=== PATIENT | male | born 1965 | race Caucasian/White ===

== ENCOUNTER → 2017-11-08 | Outpatient (CLI) | payer BC, OTHER ==
[~2017-11-08] MED LIST: ASA81BEC PO; ASPIRIN325 PO; ATORVASTATIN CA40 MG PO; EFFIENT10 MG PO; LISINOPRIL10 MG PO; NITROGLYCERIN0.4 MG SUBLING; PRILOSEC 20 MG20 MG PO; PROTONIX 20 MG20 M1 PO
--- NOTE | ~2017-11-08 | 2DMMODE ---
[address] [address] 2 D/M-MODE ECHOCARDIOGRAM Name: LEON WOLF Room #: REG [facility]#: [id number] Admission: 11/08/17 Attend Phys: Boom Flowers MD Discharge: Date of : 63 Date of Service: 11/08/17 1425 Report #: [id number] THIS REPORT FOR: //name// APPROVED REPORT Study performed: 11/08/2017 12:54:31 EXAM: Comprehensive 2D, Doppler, and color-flow Echocardiogram Patient Location: Out-Patient Status: routine BSA: 2.44 HR: 82 bpm BP: 149/87 mmHg Rhythm: NSR Other Information Study Quality: Adequate Indications CAD Hx: Stents, HTN Volumes Left Atrial Volume (Systole) LA ESV Index: 21.00 mL/m2 Tricuspid Valve RAP Estimate: 5.00 mmHg Left Ventricle The left ventricle is normal size. There is normal left ventricular wall thickness. The left ventricular systolic function is normal. The left ventricular ejection fraction is within the normal range. LVEF is 55-60%. Mild diastolic dysfunction is present (impaired relaxation pattern). Right Ventricle The right ventricle is normal size. The right ventricular systolic function is normal. Atria The left atrium size is normal. The right atrium size is normal. [address] [place] [address] 2 D/M-MODE ECHOCARDIOGRAM Name: LEON WOLF Room #: REG CL [facility]#: [id number] Admission: 11/08/17 Attend Phys: Boom Flowers MD Discharge: Date of : 63 Date of Service: 11/08/171424 Report #: [id number] Aortic Valve The aortic valve is normal in structure. No aortic regurgitation is present. There is no aortic valvular stenosis. Mitral Valve There is mitral annular calcification. There is no mitral valve regurgitation noted. No evidence of mitral valve stenosis. Tricuspid Valve The tricuspid valve is normal in structure. Trace tricuspid regurgitation. Unable to assess PA pressure. Pulmonic Valve The pulmonary valve is normal in structure. There is no pulmonic valvular regurgitation. Great Vessels The aortic root is normal in size. The ascending aorta is normal in size. IVC is normal in size and collapses >50% with inspiration. Pericardium There is no pericardial effusion. <Conclusion> The left ventricle is normal size. There is normal left ventricular wall thickness. The left ventricular systolic function is normal. Mild diastolic dysfunction is present (impaired relaxation pattern). The right ventricle is normal size. The left atrium size is normal. The aortic valve is normal in structure. There is no mitral valve regurgitation noted. Trace tricuspid regurgitation. <ELECTRONICALLY SIGNED> By: Boom Flowers MD 11/08/17 1425 1425 1425 Boom Flowers MD /JORGE
== END ==
LOC: CV 10-22 08:44
DX: I25.10 Atherosclerotic heart disease of native coronary artery without angina pectoris (principal); I10 Essential (primary) hypertension; Z95.5 Presence of coronary angioplasty implant and graft

== ENCOUNTER → 2019-01-02 | Outpatient (CLI) | payer BC, OTHER ==
--- NOTE | 2019-01-02 13:11 | EXE ---
[facility] [place] [address] STRESS ECHOCARDIOGRAM Name: LEON OWLF Room #: REG CL [facility]#: [id number] ������������� Admission: 01/02/19 ������������� Attend Phys: Boom Flowers MD Discharge: ��� ������������� ��� Date of : 63 Date of Service: 01/02/19 1311 �� Report #: [id number] �������� ��������������������������������������������[id number] THIS REPORT FOR: //name// APPROVED REPORT Study performed: 01/02/2019 12:00:51 Exam: Stress Echocardiogram Indication: CAD Patient Location: Out-Patient Stress Nurse: Pattie Pa RN Status: routine Ht: 6 ft 2 in HR: 71 bpm BP: 128/82 mmHg Rhythm: NSR Procedure The patient underwent an Exercise Stress Test using the Ryan Protocol. Blood pressure, heart rate, and EKG were monitored. An Echocardiogram was performed by log data technician in four stages in quad fashion. At peak stress, four selected images were obtained and placed side by side with resting images for comparison. Stress Test Details Stress Test: Exercise stress testing was performed using a Ryan protocol. HR Resting HR: 71 bpm Max Heart Rate (APMHR): 166 bpm Max HR Achieved: 153 bpm Target HR (85% APMHR): 141 bpm % of APMHR: 92 Recovery HR: 90 bpm HR response to stress: Normal HR response to stress BP Resting BP: 128/82 mmHg Max BP: 182/90 mmHg Recovery BP: 140/86 mmHg BP response to stress: Normal blood pressure response to stress. ECG Resting ECG: Sinus Rhythm Stress ECG: Sinus Rhythm, nonspecific ST-T abnormalities ST Change: Non-ischemic [facility] [address] [place] [address] STRESS ECHOCARDIOGRAM Name: LUCIANOLEONSOMMER RODRIGUEZ Room #: REG CL [facility]#: [id number] ������������� Admission: 01/02/19 ������������� Attend Phys: Boom Flowers MD Discharge: ��� ������������� ��� Date of : 63 Date of Service: 01/02/19 1311 �� Report #: [id number] �������� ��������������������������������������������[id number] Clinical Reason for Termination: Maximal effort/leg pain Stress Symptoms: Leg Fatigue Exercise duration: 9 min 19 sec Highest Stage Achieved: Stage 3: 3.4 mph at 14% grade. Pre-Stress Echo The resting Echocardiogram showed normal left ventricular contractility with an estimated Ejection Fraction of about 55-60%. Normal wall motion in all segments on baseline images. Post-Stress Echo The stress Echocardiogram showed normal left ventricular contractility with an estimated Ejection Fraction of about 65-70%. Normal augmentation of wall motion in all segments on post stress images. Clinical Normal augmentation of myocardial wall segments using a 17 segment model. No clinical or ECG evidence for ischemia. Conclusion Clinical Response: Non-ischemic Exercise Capacity: Average Stress ECG Response: Non-ischemic Stress Echo Images: Non-ischemic The left ventricle is normal in size and wall thickness in both the rest and stress images. Other Information Study Quality: Adequate <Conclusion> The left ventricle is normal in size and wall thickness in both the rest and stress images. ��������������������������������������������� <ELECTRONICALLY SIGNED> ���������������������������������������� By: Boom Flowers MD ��������������������������������������������� 01/02/191310 10 10 Boom Flowers MD /INF
== END ==
LOC: CV 12-01 06:28
DX: I25.10 Atherosclerotic heart disease of native coronary artery without angina pectoris (principal)

== ENCOUNTER → 2020-03-04 | Outpatient (CLI) | payer BC, OTHER | LOC: SJCVCIMAG 11:29 | PROVIDERS: ATTEND Internal Medicine Cardiovascular Disease | DX: I07.1 Rheumatic tricuspid insufficiency (principal); I25.10 Atherosclerotic heart disease of native coronary artery without angina pectoris; I10 Essential (primary) hypertension ==

== ENCOUNTER → 2020-09-02 | Outpatient (CLI) | payer BC, OTHER | LOC: SJCVCIMAG 07:59 | PROVIDERS: ATTEND Internal Medicine Cardiovascular Disease | DX: I25.10 Atherosclerotic heart disease of native coronary artery without angina pectoris (principal); I49.3 Ventricular premature depolarization; I10 Essential (primary) hypertension; E78.5 Hyperlipidemia, unspecified; E11.9 Type 2 diabetes mellitus without complications; Z98.61 Coronary angioplasty status ==

== ENCOUNTER → 2020-09-06 | Outpatient (CLI) | payer BC, OTHER ==
[~2020-09-06] VITALS: Ht 185.4 cm; Wt 112.7 kg
[~2020-09-06] MED LIST changes: +BYSTOLIC10 MG PO; +COZAAR 25 MG TA25 M1 PO; +FARXIGA10 MG PO; +METFORMIN HCL500 M3 PO; +OZEMPIC1 MG/0.75 SUBQ; +SINGULAIR 10 MG10 M1 PO
[2020-09-06 08:29] VITALS: BP 178/151
--- NOTE | 2020-09-06 12:08 | CATHLAB ---
[facility] [place] [address] INVASIVE PROCEDURE REPORT Name: LEON WOLF Room #: REG [facility].#: [id number] Admission: 09/06/20 Attend Phys: Boom Flowers MD Discharge: Date of : 63 Report #: [id number] THIS REPORT FOR: cc: Milind Lawler Damon DO Park, Jin S. MD ~ APPROVED REPORT Study performed: 09/06/2020 09:42:01 Patient Details Patient Status: Out-Patient Room #: The patient is a 54 year-old male Event Personnel Boom Flowers Flask Maker, Jada Crowe RN RN, Theron Khoury RTR Monitor, Roxanne Angeles Spooner, Carly RTR Residential Air Sealing Technician Procedures Performed Art Access - R femoral artery* Left Heart Cath w/or w/o Coronaries [id number] [facility] Hemostasis with Manual pressure 00635 Initial Mod Sed Same Phys/QHP Gr5y [id number] 53996 Mod Sed Same Phys/QHP Ea [id number] Indication Arrhythmia, Positive stress test, The patient developed nonsustained VT during the exercise portion. Risk Factors Hypercholesterolemia, Coronary Artery DiseaseHypertension, Diabetes Procedure Narrative The Right Groin^ was infiltrated with 1% Lidocaine subcutaneous anesthesia. A PINNACLE 4FR Sheath #[id number] sheath was inserted into the RFA^. Coronary angiography was performed using coronary diagnostic catheters. The right coronary system was accessed and visualized with a JR4 catheter. The left coronary system was accessed and visualized with a JL4 catheter. The left ventricle was accessed and visualized with a PIGTAIL catheter. Left ventricular/Aortic Valve gradient assessed via catheter pullback. Left ventriculogram was performed in 30 degree projection. Hemostasis was obtained with manual pressure following sheath removal without any complications. The patient tolerated the procedure well and there were no [facility] [address] [place] [place] [address] INVASIVE PROCEDURE REPORT Name: LEON WOLF Room #: REG [facility]#: [id number] Admission: 09/06/20 Attend Phys: Boom Flowers MD Discharge: Date of : 63 Report #: [id number] complications associated with the procedure. There was no hematoma. Intraoperative Conscious Sedation Sedation start time: 1019 Case end Time: 1055 Fentanyl 50 mcg Versed 1 mg Fluoro Time: 3.60 minutes Dose: DAP 35381.40 cGycm2 1558 mGy Contrast Type and Amount: Omnipaque 120 ml Coronary Angiography The patient's coronary anatomy is right dominant. Diagnostic Cath Left Main The left main artery is a large-caliber vessel, patent with no flow-limiting lesions. LAD The LAD is a moderate-sized caliber vessel, traverses the anterior wall and terminates at the apex. There is a stent in the midsegment, patent with minimal restenosis. There is mild disease in the proximal segment, 20%. Diagonal 1 There is a moderate-sized caliber vessel, with mild disease proximally. Diagonal 2 This is a moderate-sized caliber vessel with mild to moderate disease in the proximal segment, 30 to 40%. Circumflex The left circumflex artery is patent, supplying 2 OM vessels. OM1 There is a stent in the proximal segment, patent with minimal restenosis. OM2 This is a moderate-sized caliber vessel, patent with no flow-limiting lesions. Right Coronary The RCA is a moderate to large caliber vessel, tortuous as it travels the AV groove. This vessel is patent with no flow-limiting lesions. R PDA This is a moderate-sized caliber vessel, patent with no flow-limiting lesions. RPLV This is a moderate-sized caliber vessel, patent with no flow-limiting lesions. Left Ventriculography The left ventricle is normal in size with normal contractility. The left ventricular ejection fraction is estimated to be >55%. Hemodynamics [facility] [address] [place] [address] INVASIVE PROCEDURE REPORT Name: LEON WOLF MICHAEL Room #: REG CL ..#: [id number] Admission: 09/06/20 Attend Phys: Boom Flowers MD Discharge: Date of : 63 Report #: [id number] The aortic pressure is 126/70 mmHg with a mean of 80 mmHg. The left ventricular pressure is 122/11 mmHg with a mean of mmHg. The left ventricular end diastolic pressure is 23 mmHg. Conclusion 1. There is a patent stent in the mid LAD, with minimal restenosis. 2. There is a patent stent in OM1, with minimal restenosis. 3. There is mild to moderate disease in the first and second diagonal arteries. 4. There is normal LV systolic function. 5. Recommend aggressive risk factor management <ELECTRONICALLY SIGNED> By: Boom Flowers MD 09/06/20 1208 07 07 Boom Flowers MD /INF
== END | disposition home or self-care (01) ==
LOC: CATH 07:59
PROVIDERS: ATTEND Internal Medicine Cardiovascular Disease
DX: I25.10 Atherosclerotic heart disease of native coronary artery without angina pectoris (principal); R94.39 Abnormal result of other cardiovascular function study; I49.9 Cardiac arrhythmia, unspecified; I47.2 Ventricular tachycardia; I10 Essential (primary) hypertension; E78.00 Pure hypercholesterolemia, unspecified; E11.9 Type 2 diabetes mellitus without complications; R60.9 Edema, unspecified; K21.9 Gastro-esophageal reflux disease without esophagitis; Z98.890 Other specified postprocedural states; Z79.899 Other long term (current) drug therapy; Z90.49 Acquired absence of other specified parts of digestive tract; Z79.82 Long term (current) use of aspirin; Z79.84 Long term (current) use of oral hypoglycemic drugs; Z87.442 Personal history of urinary calculi; Z82.49 Family history of ischemic heart disease and other diseases of the circulatory system; Z88.8 Allergy status to other drugs, medicaments and biological substances